=== PATIENT | female | born 1950 | race Caucasian/White ===

== ENCOUNTER → 2016-11-15 | Outpatient (CLI) | payer MEDICARE, OTHER ==
[~2016-11-15] MED LIST: BIOTIN PO; IBUP-1542 PO; MAGNESIUM PO; ONDA4TAB14 PO; SPIR50TA31 PO; ZOLM5TAB7; zomig PO
--- NOTE | 2016-11-15 16:06 | RADRPT ---
PROCEDURE: US DVT. CLINICAL INDICATION: Lower extremity swelling.. TECHNIQUE: Multiple longitudinal and transverse images of the bilateral lower extremity veins were obtained with bautista scale and color Doppler imaging. 2D grayscale measurements with compression, co alma rosa Doppler flow, and augmentation was performed. The calf veins were interrogated as well. COMPARISON: No prior studies are available for comparison. FINDINGS: The bilateral common femoral, superficial femoral and popliteal veins are normally compressible thro ughout. Color flow demonstrates normal filling of the vessel. Normal waveforms are visualized and there is normal response to augmentation. Reflux is seen in the right femoral vein and popliteal ve in. IMPRESSION: 1. No evidence of a deep vein thrombosis involving either lower extremity. RPTAT: [facility] Physician Melanie Date Time Electronically viewed and signed by Physician Melanie on 11/15/2016 16:06 /
== END | disposition home or self-care (01) ==
LOC: VAS 15:25
PROVIDERS: ATTEND Orthopaedic Surgery
DX: I82.403 Acute embolism and thrombosis of unspecified deep veins of lower extremity, bilateral (principal); R22.43 Localized swelling, mass and lump, lower limb, bilateral
CPT/HCPCS: 93970

== ENCOUNTER 2017-01-03 15:12 | Emergency (ER) | payer MEDICARE, OTHER ==
[~2017-01-03] VITALS: Ht 162.6 cm; Wt 78.0 kg
[~2017-01-03 15:12] MED LIST changes: -IBUP-1542 PO; -ONDA4TAB14 PO; -ZOLM5TAB7
[2017-01-03 15:32] VITALS: Ht 162.6 cm; Wt 78.0 kg
[2017-01-03] MEDS ORDERED: morphine 4 MG/ML VIAL IV STA (18:50)
[2017-01-03] MEDS ORDERED: ONDANSETRON 4 MG INJ IV STA (18:50)
[2017-01-03 19:27] LABS: ADD SCAN DIFF NO
[2017-01-03 19:30] LABS: ABNORMAL IP MESSAGE 1; HEMATOCRIT 34.6 % (37.0-47.0); HEMOGLOBIN 11.2 g/dl (12.0-16.0); MEAN CORPUSCULAR HEMOGLOBIN 29.4 pg (29.0-33.0); MEAN CORPUSCULAR HGB CONC 32.4 g/dl (32.0-37.0); MEAN CORPUSCULAR VOLUME 90.8 fl (82.0-101.0); MEAN PLATELET VOLUME 11.7 fl (7.4-10.4); PLATELET COUNT 58 10^3/UL (140-415); RED BLOOD COUNT 3.81 10^6/ul (4.20-5.40); RED CELL DISTRIBUTION WIDTH 15.7 % (11.5-14.5); WHITE BLOOD COUNT 2.8 10^3/ul (4.8-10.8)
[2017-01-03 19:31] LABS: ADD UMIC NO; URINE BILIRUBIN (Dip) NEGATIVE (NEGATIVE); URINE BLOOD (Dip) NEGATIVE (NEGATIVE); URINE COLOR LT. YELLOW (YELLOW); URINE GLUCOSE (Dip) NEGATIVE (NEGATIVE); URINE KETONES (Dip) NEGATIVE (NEGATIVE); URINE LEUKOCYTE ESTERASE (Dip) NEGATIVE (NEGATIVE); URINE NITRITE (Dip) NEGATIVE (NEGATIVE); URINE TOTAL PROTEIN (Dip) NEGATIVE (NEGATIVE); URINE UROBILINOGEN (Dip) 1.0 E.U./dL (0.1-1.0)
[2017-01-03 19:48] LABS: ALANINE AMINOTRANSFERASE 102 IU/L (13-69); ALBUMIN 4.2 g/dl (3.3-4.9); ALKALINE PHOSPHATASE 129 IU/L (42-121); ANION GAP 14 (8-16); ASPARTATE AMINO TRANSFERASE 132 IU/L (15-46); BILIRUBIN,INDIRECT 0.9 mg/dl (0-1.1); BILIRUBIN,TOTAL 0.9 mg/dl (0.2-1.3); BLOOD UREA NITROGEN 17 mg/dl (7-20); CALCIUM 8.8 mg/dl (8.4-10.2); CARBON DIOXIDE 25 mmol/L (21-31); CHLORIDE 107 mmol/L (97-110); CREATININE 0.63 mg/dl (0.44-1.00); GLUCOSE 90 mg/dl (70-220); SODIUM 142 mmol/L (135-144); TOTAL PROTEIN 8.4 g/dl (6.1-8.1)
[2017-01-03 20:02] LABS: TROPONIN-I < 0.012 ng/ml (0.00-0.12)
--- NOTE | 2017-01-03 20:05 | RADRPT ---
PROCEDURE: CT abdomen and pelvis without contrast. CLINICAL INDICATION: Abdominal Pain TECHNIQUE: CT scan of the abdomen and pelvis without contrast was performed and is reconstructed a t 2.5 mm contiguous axial intervals from the dome of the diaphragm to the inferior pubic rami.. The patient was scanned without intravenous contrast. Sagittal and coronal reformatted images were obt ained from the axial source images. The calculated radiation dose measures 880 mGy centimeters. The CTDI measures 15 mGy. COMPARISON: None. FINDINGS: The lung bases are clear of any infiltrate or nodule. No effusion is seen. The liver is of normal size. There is a lobulated contour compatible with cirrhosis. No mass or in trahepatic ductal dilatation is present. There is extrahepatic bile duct dilatation. No stone is pr esent. Gallbladder has been removed. Patency of the portal vein is indeterminate due to lack of co ntrast. There are left upper quadrant and para esophageal varices. Findings are consistent with po rtal hypertension. Spleen is enlarged measuring 15 cm. No masses seen. No adrenal or pancreatic ab normalities present. Kidneys are of normal size and contour. No hydronephrosis, calculus or masses seen. Ureters are o f normal course and caliber with no stone. No bladder mass or stone is present. Atrophic postmenopa usal uterus and ovaries appear normal. There is no aneurysm. No adenopathy is present. No bowel mass or obstruction is present. The appendix is not confidently visualized, however, no inflamed appendix is seen. Sutures are present in the right anterior pelvic wall.. No phlegmon or pneumoperitoneum is visualized. There is trace pelvic ascites. The osseous structures are intact. IMPRESSION: No evidence of urolithiasis, obstructive uropathy or diverticulitis. Question post appendectomy. Cirrhotic liver. Varices with splenomegaly - rule out portal hypertension. Patency of portal vein is indeterminate.. .Benjie Lorenz MD, MD Date Time Electronically viewed and signed by .Benjie Lorenz MD, on 01/03/2017 20:04 .A/
[2017-01-03] MEDS ORDERED: ONDA4TAB14 PO (20:10)
[2017-01-03] MEDS ORDERED: IBUP-1542 PO (20:10)
--- NOTE | 2017-01-03 20:21 | ERD ---
ER Documentation Chief Complaint Date/Time DATE: 01/03/17 TIME: 20:20 Chief Complaint AP , SEND BY [facility] FOR FURTHER EVAL, HAS HEP C HPI Patient is a 66-year-old female with hepatitis C and cirrhosis who presents with abdominal pain. The patient was sent by Dr. Dior for possible small bowel obstruction. The patient has right-sided abdominal pain which started Monday. It was worse yesterday. The pain is constant and sharp in nature. She denies fevers. She has had no treatment yet. She did have a normal bowel movement today. Upon review of old medical records this is the patient's first visit to the emergency department. She has already had her appendix and gallbladder removed. ROS All systems reviewed and are negative except as per history of present illness. Medications Home Meds Active Scripts Ondansetron (Ondansetron Odt) 4 Mg Tab.rapdis, 4 MG PO Q6H Y for NAUSEA AND/OR VOMITING, #10 TAB Prov:LAUREN CASTILLO MD 01/03/17 Ibuprofen* (Motrin*) 600 Mg Tab, 600 MG PO Q8, #30 TAB Prov:LAUREN CASTILLO MD 01/03/17 Reported Medications [zomig] No Conflict Check, PO DAILY 04/22/15 [Magnesium] No Conflict Check, TAB PO DAILY 11/26/12 Spironolactone* (Aldactone*) 50 Mg Tablet, 50 MG PO DAILY 11/26/12 [Biotin] No Conflict Check, PO DAILY 11/26/12 Allergies Allergies: Coded Allergies: codeine (Unverified Allergy, Unknown, vomiting, 04/22/15) PMhx/Soc History of Surgery: Yes (cholecystectomy, tubal ligation, appendectomy) Anesthesia Reaction: No Hx Neurological Disorder: Yes (migraine) Hx Respiratory Disorders: No Hx Cardiac Disorders: No Hx Psychiatric Problems: No Hx Miscellaneous Medical Probl: Yes (Hep C) Hx Alcohol Use: No Hx Substance Use: No Hx Tobacco Use: No Smoking Status: Never smoker FmHx Family History: diabetes Physical Exam Vitals Vital Signs Date Time Temp Pulse Resp B/P Pulse Ox O2 Delivery O2 Flow Rate FiO2 01/03/17 15:32 98.1 56 18 116/56 99 Physical Exam Const: Mild distress secondary to pain Head: Atraumatic Eyes: Normal Conjunctiva ENT: Normal External Ears, Nose and Mouth. Neck: Full range of motion..~ No meningismus. Resp: Clear to auscultation bilaterally Cardio: Regular rate and rhythm, no murmurs Abd: Right upper and lower tenderness to palpation without rebound or guarding Skin: No petechiae or rashes Back: No midline or flank tenderness Ext: No cyanosis, or edema Neur: Awake and alert Psych: Normal Mood and Affect Result Diagram: 01/03/17192401/03/171924 Results 24 hrs Laboratory Tests Test 01/03/17 19:25 White Blood Count 2.810^3/ul Red Blood Count 3.8110^6/ul Hemoglobin 11.2g/dl Hematocrit 34.6% Mean Corpuscular Volume 90.8fl Mean Corpuscular Hemoglobin 29.4pg Mean Corpuscular Hemoglobin Concent 32.4g/dl Red Cell Distribution Width 15.7% Platelet Count 5810^3/UL Mean Platelet Volume 11.7fl Urine Color LT. YELLOW Urine Clarity CLEAR Urine pH 6.0 Urine Specific [place] 1.010 Urine Ketones NEGATIVE Urine Nitrite NEGATIVE Urine Bilirubin NEGATIVE Urine Urobilinogen 1.0 E.U./dL Urine Leukocyte Esterase NEGATIVE Urine Hemoglobin NEGATIVE Urine Glucose NEGATIVE% Urine Total Protein NEGATIVE Sodium Level 142mmol/L Potassium Level 4.0mmol/L Chloride Level 107mmol/L Carbon Dioxide Level 25mmol/L Anion Gap 14 Blood Urea Nitrogen 17mg/dl Creatinine 0.63mg/dl Glucose Level 90mg/dl Calcium Level 8.8mg/dl Total Bilirubin 0.9mg/dl Direct Bilirubin 0.00mg/dl Indirect Bilirubin 0.9mg/dl Aspartate Amino Transf (AST/SGOT) 132IU/L Alanine Aminotransferase (ALT/SGPT) 102IU/L Alkaline Phosphatase 129IU/L Troponin I < 0.012ng/ml Total Protein 8.4g/dl Albumin 4.2g/dl Globulin 4.20g/dl Albumin/Globulin Ratio 1.00 Lipase 63U/L Current Medications Medications (Trade) Dose Ordered Sig/[place] Route PRN Reason Start Time Stop Time Status Last Admin Dose Admin Morphine Sulfate (morphine) 4 mg ONCE STAT IV 01/03/17 18:50 01/03/17 18:52 DC 01/03/17 19:34 Ondansetron HCl (Zofran Inj) 4 mg ONCE STAT IV 01/03/17 18:50 01/03/17 18:52 DC 01/03/17 19:34 Procedures/MDM CT shows no signs of obstruction or surgical process per radiology. Patient is a 66-year-old female with hepatitis C and cirrhosis who presents with abdominal pain. CT scan shows no sign of small bowel obstruction. I doubt cholecystitis, appendicitis, bowel obstruction, or pancreatitis. I believe outpatient management is appropriate. The patient will need to follow- up closely with her primary doctor within 24 hours for reevaluation. She will be given a prescription for ibuprofen and Zofran for systematic relief. She has pancytopenia which is likely related to her cirrhosis. Departure Diagnosis: Primary Impression: Abdominal pain Abdominal location: unspecified location Qualified Code: R10.9 - Abdominal pain, unspecified location Additional Impression: Pancytopenia Condition: Fair Patient Instructions: Abdominal Pain Additional Instructions: FOLLOW UP WITH YOUR PRIMARY CARE PHYSICIAN TOMORROW.Return to this facility if you are not improving as expected. LAUREN CASTILLO MD Jan 03, 2017 20:21
[2017-01-03 21:50] LABS: LYMPHOCYTES # 0.6 10^3/ul (0.8-2.9); MONOCYTE # 0.2 10^3/ul (0.3-0.9); PLATELET ESTIMATE PLT APPEAR DECREASED
[2017-01-03 21:51] LABS: PLATELETS CLUMPS 1+
== END 2017-01-03 20:30 | disposition home or self-care (01) ==
LOC: E/R 15:12
DX: R10.11 Right upper quadrant pain (principal); R10.31 Right lower quadrant pain; D61.818 Other pancytopenia
CPT/HCPCS: 36415; 74176; 80053; 81003; 83690; 84484; 85025; 93005; 96374; 96375; 99285; J2270; J2405